=== PATIENT | male | born 1965 | race African-American/Black ===

== ENCOUNTER 2019-06-17 18:14 | Inpatient (IN) | payer MEDICARE, MEDICAID ==
[~2019-06-17] VITALS: Ht 177.8 cm; Wt 185.5 kg
--- NOTE | 2019-06-17 18:17 | NUR ---
ED Nurse Note: Pt brought in by ambulance from home due to left side CP, non radiating and consistent since last night. Pt states he feels more pain when he breathes in. AAO x4, with mild SOB upon exertion. Lungs clear when auscultated. ER MD made aware.
--- NOTE | 2019-06-17 18:22 | Emergency Room Report ---
History of Present Illness General Chief Complaint: Dyspnea/Respdistress Source: Patient Present Illness HPI 53-year-old male history of hypertension, hyperlipidemia, obesity presents with chest pressure left-sided since 9 PM yesterday no aggravating or relieving factors severity is moderate, constant no nausea no vomiting, patient does endorse some shortness of breath no diaphoresis, patient has a family history of cardiac disease in mother age 65 had a possible SD cannot remember, patient presents via EMS patient already received aspirin and nitro Allergies: Coded Allergies: No Known Allergies (Unverified , 06/17/19) Patient History Past Medical History: see triage record Reviewed Nursing Documentation: PMH: Agreed; PSxH: Agreed Review of Systems All Other Systems: negative except mentioned in HPI Physical Exam Vital Signs Date Time Temp Pulse Resp B/P (MAP) Pulse Ox O2 Delivery O2 Flow Rate FiO2 06/17/19 18:07 98.4 104 20 154/84 (107) 98 Room Air Sp02 EP Interpretation: reviewed, normal General Appearance: well appearing, no apparent distress, alert Head: normocephalic, atraumatic Eyes: bilateral eye PERRL, bilateral eye EOMI ENT: uvula midline, moist mucus membranes Neck: supple, thyroid normal, supple/symm/no masses Respiratory: lungs clear, no respiratory distress, no retraction, no accessory muscle use Cardiovascular #1: normal peripheral pulses, regular rate, rhythm, no edema, no gallop, no murmur Gastrointestinal: non tender, soft, no guarding, no rebound Musculoskeletal: normal inspection Neurologic: alert, oriented x3 Psychiatric: mood/affect normal Skin: no rash, warm/dry Medical Decision Making Diagnostic Impression: Primary Impression: Chest pain Qualified Codes: R07.9 - Chest pain, unspecified ER Course Patient with chest pain, concerning for possible ACS. No evidence of pneumothorax, pneumonia. Historically not abrupt in onset, tearing or ripping, pulses symmetric, no evidence of aortic dissection. Aspirin already given, nitro given. Patient is doing well Patient admitted to Dr. Perez Laboratory Tests Test 06/17/19 18:30 White Blood Count 12.7 K/UL (4.8-10.8) H Red Blood Count 4.58 M/UL (4.70-6.10) L Hemoglobin 13.9 G/DL (14.2-18.0) L Hematocrit 42.1 % (42.0-52.0) Mean Corpuscular Volume 92 FL (80-99) Mean Corpuscular Hemoglobin 30.5 PG (27.0-31.0) Mean Corpuscular Hemoglobin Concent 33.1 G/DL (32.0-36.0) Red Cell Distribution Width 10.7 % (11.6-14.8) L Platelet Count 262 K/UL (150-450) Mean Platelet Volume 7.0 FL (6.5-10.1) Neutrophils (%) (Auto) 64.7 % (45.0-75.0) Lymphocytes (%) (Auto) 21.3 % (20.0-45.0) Monocytes (%) (Auto) 8.1 % (1.0-10.0) Eosinophils (%) (Auto) 4.3 % (0.0-3.0) H Basophils (%) (Auto) 1.6 % (0.0-2.0) Prothrombin Time 10.0 SEC (9.30-11.50) Prothrombin Time INR 0.9 (0.9-1.1) PTT 30 SEC (23-33) Sodium Level 140 MMOL/L (136-145) Potassium Level 3.7 MMOL/L (3.5-5.1) Chloride Level 103 MMOL/L (98-107) Carbon Dioxide Level 30 MMOL/L (21-32) Anion Gap 8 mmol/L (5-15) Blood Urea Nitrogen 10 mg/dL (7-18) Creatinine 1.0 MG/DL (0.55-1.30) Estimate Glomerular Filtration Rate > 60 mL/min (>60) Glucose Level 131 MG/DL (74-106) H Calcium Level 9.1 MG/DL (8.5-10.1) Total Bilirubin 0.5 MG/DL (0.2-1.0) Aspartate Amino Transferase (AST) 26 U/L (15-37) Alanine Aminotransferase (ALT) 39 U/L (12-78) Alkaline Phosphatase 87 U/L (46-116) Troponin I 0.000 ng/mL (0.000-0.056) Pro-B-Type Natriuretic Peptide 6 pg/mL (0-125) Total Protein 7.8 G/DL (6.4-8.2) Albumin 3.3 G/DL (3.4-5.0) L Globulin 4.5 g/dL Albumin/Globulin Ratio 0.7 (1.0-2.7) L Lipase 120 U/L (73-393) EKG Diagnostic Results EKG Time: 18:12 EP Interpretation: NSR, rate 99, QTc 436, no acute ST elevations, normal axis Rhythm Strip Diag. Results Rhythm Strip Time: 19:54 EP Interpretation: yes Rate: 88 Rhythm: NSR, no PVC's, no ectopy Chest X-Ray Diagnostic Results Chest X-Ray Diagnostic Results : Chest X-Ray Ordered: Yes # of Views/Limited/Complete: 1 View Indication: Chest Pain EP Interpretation: Yes Interpretation: no consolidation, no effusion, no pneumothorax, no acute cardiopulmonary disease Impression: No acute disease Electronically Signed by: Rubin Hutson MD Last Vital Signs Date Time Temp Pulse Resp B/P (MAP) Pulse Ox O2 Delivery O2 Flow Rate FiO2 06/17/19 18:07 98.4 104 20 154/84 (107) 98 Room Air Disposition: ADMITTED INPATIENT Condition: Stable Rubin Hutson MD Jun 17, 2019 18:22
--- NOTE | 2019-06-17 18:40 | NUR ---
ED Nurse Note: Collected blood specimen then sent.
[2019-06-17 18:42] VITALS: BP 137/68
--- NOTE | 2019-06-17 18:45 | NUR ---
ED Nurse Note: seed laboratory technician at the bed side for CXR.
[2019-06-17 19:07] LABS: INR 0.9 (0.9-1.1)
[2019-06-17 19:08] LABS: BASOPHILS % (AUTO) 1.6 % (0.0-2.0); EOSINOPHILS % (AUTO) 4.3 % (0.0-3.0); HEMATOCRIT 42.1 % (42.0-52.0); HEMOGLOBIN 13.9 G/DL (14.2-18.0); LYMPHOCYTES % (AUTO) 21.3 % (20.0-45.0); MEAN CORPUSCULAR VOLUME 92 FL (80-99); MONOCYTES % (AUTO) 8.1 % (1.0-10.0); NEUTROPHILS % (AUTO) 64.7 % (45.0-75.0); PLATELET COUNT 262 K/UL (150-450); RED BLOOD COUNT 4.58 M/UL (4.70-6.10); RED CELL DISTRIBUTION WIDTH 10.7 % (11.6-14.8); WHITE BLOOD COUNT 12.7 K/UL (4.8-10.8)
[2019-06-17 19:12] LABS: ANION GAP 8 mmol/L (5-15); BLOOD UREA NITROGEN 10 mg/dL (7-18); CALCIUM 9.1 MG/DL (8.5-10.1); CARBON DIOXIDE 30 MMOL/L (21-32); CHLORIDE 103 MMOL/L (98-107); POTASSIUM 3.7 MMOL/L (3.5-5.1); SODIUM 140 MMOL/L (136-145)
--- NOTE | 2019-06-17 19:16 | NUR ---
HAND-OFF: Report given to Terrance ANTONIO.
--- NOTE | 2019-06-17 19:18 | NUR ---
ED Nurse Note: Received report from Otilia ANTONIO. Patient alert and verbally responsive. No SOB. Breathing even and unlabored. Afebrile. VSS.
[2019-06-17 19:20] LABS: ALANINE AMINOTRANSFERASE 39 U/L (12-78); ALBUMIN 3.3 G/DL (3.4-5.0); ALBUMIN/GLOBULIN RATIO 0.7 (1.0-2.7); ALKALINE PHOSPHATASE 87 U/L (46-116); ASPARTATE AMINO TRANSFERASE 26 U/L (15-37); BILIRUBIN,TOTAL 0.5 MG/DL (0.2-1.0)
--- NOTE | 2019-06-17 21:00 | NUR ---
ED Nurse Note: Patient seen quietly in bed. Alert and oriented. No SOB. No c/o pain or any discomfort. will cont to monitor.
[2019-06-17 21:05] VITALS: BP 133/77
[2019-06-17] MEDS ORDERED: Nitroglycerin Subl 0.4mg tab SL PRN (22:00)
[2019-06-17] MEDS ORDERED: Enalaprilat 2.5mg/2ml Inj IV PRN (22:00)
[2019-06-17] MEDS ORDERED: dilTIAZem HCl 25mg/5ml Inj IV PRN (22:00)
[2019-06-17] MEDS ORDERED: Miralax 17gm pkt ORAL PRN (22:00)
[2019-06-17] MEDS ORDERED: Albuterol/Ipratropium 3ml neb HHN PRN (22:00)
[2019-06-17 23:00] VITALS: BP 130/79
--- NOTE | 2019-06-17 23:11 | NUR ---
TRANSFER TO FLOOR: Patient transferred to Telemetry as ordered. Report given to Edward ANTONIO. alert and oriented, verbally responsive. no SOB. Breathing even and unlabored. Able to walk with minimal assistance. IV line on right hand 20g patent and intact. Bladder and bowel continent. Afebrile. VSS. Belongings list done. Belongings was given to patient.
--- NOTE | 2019-06-17 23:30 | NUR ---
HAND-OFF: Patient received from Jeanine RN. Patient i alert and oriented x4. Stable. No shortnes of reath. Patient is able to ambulate with minimal assistance. RH 20 g IV Patent. Continent of bowel and bladder. Vital signs stable. Belongings withpatient at bedside. Orders were input already by Dr Bender.
[2019-06-18] MEDS: Morphine Sulfate 2mg/ml Inj(IV/IM USE ONLY) IVP PRN ×2 (00:17→21:47)
[2019-06-18 07:10] LABS: BASOPHILS % (AUTO) 0.7 % (0.0-2.0); EOSINOPHILS % (AUTO) 5.1 % (0.0-3.0); HEMATOCRIT 39.9 % (42.0-52.0); HEMOGLOBIN 13.3 G/DL (14.2-18.0); MEAN CORPUSCULAR VOLUME 92 FL (80-99); MONOCYTES % (AUTO) 8.3 % (1.0-10.0); PLATELET COUNT 243 K/UL (150-450); RED BLOOD COUNT 4.34 M/UL (4.70-6.10); RED CELL DISTRIBUTION WIDTH 11.7 % (11.6-14.8); WHITE BLOOD COUNT 11.6 K/UL (4.8-10.8)
--- NOTE | 2019-06-18 07:35 | NUR ---
HAND-OFF: Report given to Judy ANTONIO. Patient is stable. Plan of care was endorsed.
--- NOTE | 2019-06-18 07:39 | NUR ---
NURSE NOTES: Patient received from Mateus ANTONIO. Patient stable sleeping in bed. No s/sx of pain or distress. RR even and unlabored on 2L NC for comfort as requested by patient. Side rails up x2, bed low and locked. Will continue to monitor.
[2019-06-18 07:53] LABS: INR 0.9 (0.9-1.1)
[2019-06-18 07:56] LABS: CHOLESTEROL 140 MG/DL (< 200); HDL CHOLESTEROL 38 MG/DL (40-60); TRIGLYCERIDES 75 MG/DL (30-150)
[2019-06-18 08:00] VITALS: BP 121/63
[2019-06-18] MEDS: Aspirin Baby 81mg ORAL SCH (09:01)
[2019-06-18] MEDS: Heparin 5000 units/ml inj SUBQ SCH ×2 (09:08→21:46)
--- NOTE | 2019-06-18 09:40 | NUR ---
NURSE NOTES: Patient cannot recall medications but stated that he fills medications at [facility] pharmacy on [address]. Pharmacy called and requested consent for disclosure of medications to be filled out and faxed. Sheet faxed. Awaiting fax back.
--- NOTE | 2019-06-18 11:31 | Consultation ---
History of Present Illness General Date patient seen: Jun 18, 2019 Chief Complaint: Dyspnea/Respdistress Present Illness HPI 53-year-old male history of hypertension, hyperlipidemia, gout, morbid obesity presented to ER with chest pressure left-sided since. the pain is pleuritic and worsens with deep inspiration. His BP was 150/80 on presentation. His pain resolved with low dose of Morphine. Allergies: Coded Allergies: CIGARETTE SMOKE (Verified Allergy, Intermediate, Shortness of Breath, 07/27) Dust (Verified Allergy, Intermediate, Shortness of Breath, 06/18/19) Patient History Healthcare decision maker Resuscitation status Full Code Advanced Directive on File Past Medical/Surgical History Past Medical/Surgical History: (1) Morbid obesity (2) Hypertension (3) CAD (coronary artery disease) Review of Systems All Other Systems: negative except mentioned in HPI Physical Exam General Appearance: WD/WN, morbidly obese Lines, tubes and drains: peripheral HEENT: normocephalic, atraumatic Neck: non-tender, normal alignment, supple Respiratory/Chest: chest wall non-tender, lungs clear Cardiovascular/Chest: normal peripheral pulses, normal rate Abdomen: normal bowel sounds, non tender Genitourinary/Rectal: normal genital exam 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 Last 24 Hour Vital Signs Date Time Temp Pulse Resp B/P (MAP) Pulse Ox O2 Delivery O2 Flow Rate FiO2 06/18/19 09:29 Nasal Cannula 2.0 06/18/19 08:00 97.9 73 21 121/63 (82) 95 06/18/19 08:00 72 06/18/19 07:24 96 Nasal Cannula 2.0 28 06/18/19 07:24 86 20 96 Nasal Cannula 2.0 28 06/18/19 04:00 72 06/18/19 00:47 97.7 06/18/19 00:00 86 06/17/19 23:35 Room Air 06/17/19 23:11 98.2 77 19 130/79 100 Room Air 06/17/19 23:00 98.2 77 19 130/79 100 Room Air 06/17/19 21:05 98.7 88 19 133/77 99 Room Air 06/17/19 18:42 86 17 Room Air 06/17/19 18:42 98.4 83 15 137/68 99 Room Air 06/17/19 18:07 98.4 104 20 154/84 (107) 98 Room Air Laboratory Tests Test 06/17/19 18:30 06/18/19 06:21 White Blood Count 12.7 K/UL (4.8-10.8) H 11.6 K/UL (4.8-10.8) H Red Blood Count 4.58 M/UL (4.70-6.10) L 4.34 M/UL (4.70-6.10) L Hemoglobin 13.9 G/DL (14.2-18.0) L 13.3 G/DL (14.2-18.0) L Hematocrit 42.1 % (42.0-52.0) 39.9 % (42.0-52.0) L Mean Corpuscular Volume 92 FL (80-99) 92 FL (80-99) Mean Corpuscular Hemoglobin 30.5 PG (27.0-31.0) 30.7 PG (27.0-31.0) Mean Corpuscular Hemoglobin Concent 33.1 G/DL (32.0-36.0) 33.4 G/DL (32.0-36.0) Red Cell Distribution Width 10.7 % (11.6-14.8) L 11.7 % (11.6-14.8) Platelet Count 262 K/UL (150-450) 243 K/UL (150-450) Mean Platelet Volume 7.0 FL (6.5-10.1) 7.2 FL (6.5-10.1) Neutrophils (%) (Auto) 64.7 % (45.0-75.0) 58.0 % (45.0-75.0) Lymphocytes (%) (Auto) 21.3 % (20.0-45.0) 28.0 % (20.0-45.0) Monocytes (%) (Auto) 8.1 % (1.0-10.0) 8.3 % (1.0-10.0) Eosinophils (%) (Auto) 4.3 % (0.0-3.0) H 5.1 % (0.0-3.0) H Basophils (%) (Auto) 1.6 % (0.0-2.0) 0.7 % (0.0-2.0) Prothrombin Time 10.0 SEC (9.30-11.50) 10.0 SEC (9.30-11.50) Prothromb Time International Ratio 0.9 (0.9-1.1) 0.9 (0.9-1.1) Activated Partial Thromboplast Time 30 SEC (23-33) 30 SEC (23-33) Sodium Level 140 MMOL/L (136-145) Potassium Level 3.7 MMOL/L (3.5-5.1) Chloride Level 103 MMOL/L (98-107) Carbon Dioxide Level 30 MMOL/L (21-32) Anion Gap 8 mmol/L (5-15) Blood Urea Nitrogen 10 mg/dL (7-18) Creatinine 1.0 MG/DL (0.55-1.30) Estimat Glomerular Filtration Rate > 60 mL/min (>60) Glucose Level 131 MG/DL (74-106) H Calcium Level 9.1 MG/DL (8.5-10.1) Total Bilirubin 0.5 MG/DL (0.2-1.0) Aspartate Amino Transf (AST/SGOT) 26 U/L (15-37) Alanine Aminotransferase (ALT/SGPT) 39 U/L (12-78) Alkaline Phosphatase 87 U/L (46-116) Troponin I 0.000 ng/mL (0.000-0.056) Pro-B-Type Natriuretic Peptide 6 pg/mL (0-125) Total Protein 7.8 G/DL (6.4-8.2) Albumin 3.3 G/DL (3.4-5.0) L Globulin 4.5 g/dL Albumin/Globulin Ratio 0.7 (1.0-2.7) L Lipase 120 U/L (73-393) C-Reactive Protein, Quantitative 2.1 mg/dL (0.00-0.90) H Triglycerides Level 75 MG/DL (30-150) Cholesterol Level 140 MG/DL (< 200) LDL Cholesterol 101 mg/dL (<100) H HDL Cholesterol 38 MG/DL (40-60) L Cholesterol/HDL Ratio 3.7 (3.3-4.4) Thyroid Stimulating Hormone (TSH) 2.943 uiU/mL (0.358-3.740) Height (Feet): 5 Height (Inches): 10.00 Weight (Pounds): 409 Medications Current Medications Medications (Trade) Dose Ordered Sig/Teresa Route PRN Reason Start Time Stop Time Status Last Admin Dose Admin Acetaminophen (Tylenol) 650 mg Q4H PRN ORAL FEVER 06/17/19 22:00 07/17/19 21:59 Albuterol/ Ipratropium (Albuterol/ Ipratropium) 3 ml EVERY 4 HOURS PRN HHN Shortness of Breath 06/17/19 22:00 06/22/19 21:59 Aspirin (ASA) 162 mg DAILY ORAL 06/18/19 09:00 07/18/19 08:59 06/18/19 09:01 Diltiazem HCl (Cardizem) 10 mg EVERY HOUR PRN IV heart rate more than 120, 06/17/19 22:00 07/17/19 21:59 Enalaprilat (Vasotec) 2.5 mg EVERY 6 HOURS PRN IV sbp more than 160 06/17/19 22:00 07/17/19 21:59 Heparin Sodium (Porcine) (Heparin 5000 units/ml) 5,000 units EVERY 12 HOURS SUBQ 06/18/19 09:00 07/18/19 08:59 06/18/19 09:08 Morphine Sulfate (Morphine Sulfate) 2 mg EVERY 4 HOURS PRN IVP severe Pain (Pain Scale 7-10) 06/17/19 22:00 06/24/19 21:59 06/18/19 00:17 Nitroglycerin (Ntg) 0.4 mg NEEDED PRN SL Prn Chest Pain 06/17/19 22:00 07/17/19 21:59 Ondansetron HCl (Zofran) 4 mg Q6H PRN IVP Nausea & Vomiting 06/17/19 22:00 07/17/19 21:59 Polyethylene Glycol (Miralax) 17 gm DAILYPRN PRN ORAL Constipation 06/17/19 22:00 07/17/19 21:59 Temazepam (Restoril) 15 mg HSPRN PRN ORAL Insomnia 06/17/19 22:00 06/24/19 21:59 Assessment/Plan Problem List: (1) Pleuritic chest pain ICD Codes: R07.81 - Pleurodynia SNOMED: 0107957 (2) Abnormal EKG ICD Codes: R94.31 - Abnormal electrocardiogram [ECG] [EKG] SNOMED: 318874723 (3) Morbid obesity ICD Codes: E66.01 - Morbid (severe) obesity due to excess calories SNOMED: 733318337 (4) Hypertension ICD Codes: I10 - Essential (primary) hypertension SNOMED: 14597645 (5) CAD (coronary artery disease) ICD Codes: I25.10 - Atherosclerotic heart disease of [place] coronary artery without angina pectoris SNOMED: 55910843 Assessment/Plan: echocardiogram serial ekg there is some risk for PE, Echo showing normal pulmonary pressure. I will get venous US of legs. cardiology evaluation pt will need nutrition evaluation as well. symptomatic treatment. Dejan Bender MD Jun 18, 2019 11:31
[2019-06-18 11:53] VITALS: BP 133/77
--- NOTE | 2019-06-18 12:17 | Diagnostic Imaging Report ---
Indication: Dyspnea Comparison: None A single view chest radiograph was obtained. Findings: Cardiomediastinal appearance is within normal limits for age. The lungs are clear. Pulmonary vascularity is appropriate. The diaphragmatic contour is smooth and costophrenic angles are sharp. No pleural effusions are identified. The bones are unremarkable. Impression: No acute findings
[2019-06-18] MEDS ORDERED: Norco ORAL (13:22)
[2019-06-18] MEDS ORDERED: FLOMAX0.4 MG ORAL (13:22)
[2019-06-18] MEDS ORDERED: TIZANIDINE HCL4 M2 ORAL (13:22)
[2019-06-18] MEDS ORDERED: ASPIRIN-LOW81 MG ORAL (13:22)
[2019-06-18] MEDS ORDERED: [UNRECOGNIZED DRUG - OTHER] NASAL (13:22)
[2019-06-18] MEDS ORDERED: LISINOPRIL-HCT1 EACH ORAL (13:22)
[2019-06-18] MEDS ORDERED: GABAPENTIN600 MG ORAL (13:22)
[2019-06-18] MEDS ORDERED: CELECOXIB ORAL (13:22)
--- NOTE | 2019-06-18 13:29 | NUR ---
CASE MANAGEMENT: INITIAL REVIEW 53 YR OLD FROM HOME CC: DYSPNEA/ RESP DISTRESS SI: CHEST PAIN 98.4 104 20 154/84 98%RA WBC 12.7; RBC 4.58; H/H 13.9/42.1; BG 131; IS: CXR ECG LABS 2D ECHO : 2E TELE UNIT DCP: RETURN HOME PLAN: US LEGS CARDIO EVAL
--- NOTE | 2019-06-18 14:21 | NUR ---
NURSE NOTES: Patient aware that urine sample needed. Specimen cup given.
[2019-06-18 16:00] VITALS: BP 127/69
--- NOTE | 2019-06-18 16:09 | History & Physical ---
History and Physical History & Physicial Michael Perez MD Jun 18, 2019 16:09
--- NOTE | 2019-06-18 18:30 | History and Physical Report ---
DATE OF ADMISSION: 06/17/2019 CHIEF COMPLAINT: Left-sided chest pain and shortness of breath. HISTORY OF PRESENT ILLNESS: This is a 53-year-old morbidly obese gentleman with past medical history significant for hypertension, dyslipidemia, and gout, who has presented to the hospital complaining about left-sided chest pain that started Friday, the day before admission around 9 p.m., progressive worsening chest pain, was mostly located in the left side of chest wall, radiates to the left chest and down to the left side of body, left upper extremity associated with shortness of breath. Pain became progressively worsening to the point that he was about to pass out and he decided to come to the hospital. Shortly after initial evaluation in the Emergency, the patient received one dose of morphine. His shortness of breath and chest pain improved and subsequently the patient was admitted to the hospital with chest pain, possible acute coronary syndrome as well as acute CHF exacerbation with fluid overload. PAST MEDICAL HISTORY/PAST SURGICAL HISTORY: As above, history of hypertension, dyslipidemia, morbid obesity, and history of gout. Past surgical history is significant for the right elbow surgery due to shattered elbow as well as the patient has a history of angina. MEDICATIONS AT HOME: Please refer to medication reconciliation. ALLERGIES: No known drug allergies. Dust allergy. SOCIAL HISTORY: The patient denies cigarette smoking. FAMILY HISTORY: Noncontributory. REVIEW OF SYSTEMS: Mostly as above. Complained about chest pain and shortness of breath. Denies any hemoptysis or hematochezia. Denies any suicidal or homicidal ideation. Denies any loss of consciousness. Denies any fall or head trauma. Denies any seizure activity. Complained about the lower extremity edema. Denies any fall or head trauma. PHYSICAL EXAMINATION: VITAL SIGNS: On admission from the ER, temperature 98.4, pulse of 104, respirations 20, and blood pressure 154/84. GENERAL: The patient is awake, responsive, in no acute distress. HEAD AND NECK: Pupils are equal and reactive to light. Extraocular movements intact. Neck was supple. No JVD. LUNGS: Good air entry with no wheeze or rales. HEART: S1, S2. Distant heart sounds. No murmur or gallops. ABDOMEN: Soft, nondistended, and nontender. Morbidly obese. EXTREMITIES: No cyanosis or clubbing. +2 edema bilateral lower extremities NEUROLOGIC: Cranial nerves II through XII grossly normal. Moves all four extremities. Gait is not assessed due to the patient's status. RECTAL/GENITOURINARY: Refused and deferred. PSYCHIATRIC: Mood and affect is intact. LABORATORY DATA: On admission from the ER is significant for WBC of 12, hemoglobin 13, hematocrit 42, and platelets 262,000. Sodium 140, potassium 3.7, chloride 103, bicarbonate 30, BUN 10, and creatinine 1.0. Glucose is 131. AST of 26, ALT of 39. Troponin 0.00. The patient's cholesterol is 140. Lipase is 120. TSH is 2.4. PT of 10, INR is 0.9, PTT of 30. Urine drug screen is still pending. Chest x-ray, no acute finding. Duplex of lower extremities negative. ASSESSMENT: 1. Chest pain, possible acute coronary syndrome. 2. Fluid overload with acute CHF exacerbation. 3. Morbid obesity. 4. Hypertension. 5. Dyslipidemia. 6. Pleuritic chest pain with abnormal EKG. PLAN: We will follow up with serial cardiac enzymes. Lasix IV. Monitor laboratory. Code status is Full Code. DVT prophylaxis with heparin subcutaneous. Follow up with 2-D echo. Discussed case with Dr. Bender, Pulmonary Critical Care and Dr. El from Cardiology. Michael Perez M.D. DR: BERNADINE JOB#: [id number] CC:
--- NOTE | 2019-06-18 19:20 | NUR ---
HAND-OFF: Report given to Mateus ANTONIO. Patient stable.
--- NOTE | 2019-06-18 19:30 | NUR ---
Report given to me by Judy ANTNOIO. Patient is resting comfortably in bed. Vital signs stable. Bed in lowest position, call light within reach. Patient c/o constipation 2 days.. Will page MD for prn medication for constipation. Continue to follow with plan of care endorsed to me.
[2019-06-18 20:00] VITALS: BP 143/86
[2019-06-19] VITALS (7 sets, daily range): BP systolic 129–144; BP diastolic 68–92
--- NOTE | 2019-06-19 07:14 | NUR ---
Report given to Christina ANTONIO. Patient is stable. Endorsed plan of care. Addendum: 06/19/19 at 0714 by Mateus ISBELL Report given to Travis ANTONIO, not Christina ANTONIO
--- NOTE | 2019-06-19 07:15 | NUR ---
NURSE NOTES: Received report from MARISELA Michelle. Patient is alert and orientated x 4. Patient is on monitoring specialist. Ppatient is on room air breathing even and unlabored. Patient is in semi-quintanilla position and lying in bed. Bed is in lowest position, call light within reach, side rails x2 are up. Will continue plan of care.
[2019-06-19 07:30] LABS: BASOPHILS % (AUTO) 0.8 % (0.0-2.0); EOSINOPHILS % (AUTO) 6.3 % (0.0-3.0); HEMATOCRIT 40.6 % (42.0-52.0); HEMOGLOBIN 13.4 G/DL (14.2-18.0); MEAN CORPUSCULAR VOLUME 92 FL (80-99); PLATELET COUNT 257 K/UL (150-450); RED BLOOD COUNT 4.43 M/UL (4.70-6.10); RED CELL DISTRIBUTION WIDTH 11.5 % (11.6-14.8); WHITE BLOOD COUNT 10.2 K/UL (4.8-10.8)
[2019-06-19 08:03] LABS: ALANINE AMINOTRANSFERASE 35 U/L (12-78); ALBUMIN 3.2 G/DL (3.4-5.0); ALBUMIN/GLOBULIN RATIO 0.7 (1.0-2.7); ALKALINE PHOSPHATASE 72 U/L (46-116); ANION GAP 6 mmol/L (5-15); ASPARTATE AMINO TRANSFERASE 24 U/L (15-37); BILIRUBIN,TOTAL 0.8 MG/DL (0.2-1.0); BLOOD UREA NITROGEN 8 mg/dL (7-18); CALCIUM 9.2 MG/DL (8.5-10.1); CARBON DIOXIDE 30 MMOL/L (21-32); CHLORIDE 103 MMOL/L (98-107); CREATININE 0.9 MG/DL (0.55-1.30); PHOSPHORUS 3.6 MG/DL (2.5-4.9); POTASSIUM 3.9 MMOL/L (3.5-5.1); SODIUM 139 MMOL/L (136-145)
--- NOTE | 2019-06-19 08:41 | Pulmonology Progress Note ---
Assessment/Plan Assessment/Plan ASSESSMENT Chest pain rule out ACS ? pleuritic chest pain Hypertension Hyperlipidemia Morbid obesity SYLVIA Gout PLAN OF CARE Telemetry Serial troponin negative , tele no acute ischemic changes, thus no acute NV, clinically improving Echo with EF 65% aspirin fup with cardio recs pain management O2, HHN prn pulse ox now stable on RA Venous duplex BLE - negative DVT prophylaxis CXR negative BP management with STARLA Lipid panel stable at home on CPAP, BiPAP at HS and prn case discussed and evaluated by supervising physician Subjective Allergies: Coded Allergies: CIGARETTE SMOKE (Verified Allergy, Intermediate, Shortness of Breath, 07/27) Dust (Verified Allergy, Intermediate, Shortness of Breath, 06/18/19) Subjective leukocytosis resolved,afebrile pulse ox stable on RA serial troponin negative denies chest pain, less leg edema, less SOB Objective Last 24 Hour Vital Signs Date Time Temp Pulse Resp B/P (MAP) Pulse Ox O2 Delivery O2 Flow Rate FiO2 06/19/19 08:00 98.0 75 22 129/73 (91) 95 06/19/19 04:00 97.7 85 18 132/74 (93) 97 06/19/19 04:00 69 06/19/19 00:00 98.1 77 18 144/92 (109) 97 06/19/19 00:00 66 06/18/19 22:17 97.5 06/18/19 21:00 Nasal Cannula 2.0 06/18/19 20:00 97.5 77 18 143/86 (105) 97 06/18/19 19:38 97 Nasal Cannula 2.0 28 06/18/19 19:38 80 20 97 Nasal Cannula 2.0 28 06/18/19 16:00 97.5 72 22 127/69 (88) 97 06/18/19 16:00 70 06/18/19 12:00 73 06/18/19 11:53 98.0 70 22 133/77 (95) 96 06/18/19 09:29 Nasal Cannula 2.0 Intake and Output 06/18/19 06/19/19 19:00 07:00 Output Total 1000 ml Balance -1000 ml Output Urine Total 1000 ml # Voids 4 General Appearance: no acute distress, other - A/A/O x 4 morbidly obese male HEENT: normocephalic, atraumatic, anicteric, mucous membranes moist, PERRL Respiratory/Chest: chest wall non-tender, no respiratory distress, no accessory muscle use, crackles/rales - few crackles at bases Cardiovascular: normal rate, regular rhythm - SR on tele Abdomen: soft, non tender - obese Neurologic/Psychiatric: no motor/sensory deficits, alert, oriented x 3, responsive Musculoskeletal: normal muscle bulk Laboratory Tests 06/18/19 13:50: Urine Opiates Screen Negative, Urine Barbiturates Screen Negative, Phencyclidine (PCP) Screen Negative, Urine Amphetamines Screen Negative, Urine Benzodiazepines Screen Negative, Urine Cocaine Screen Negative, Urine Marijuana (THC) Screen Negative 06/18/19 16:15: Troponin I 0.000 06/19/19 05:31: Troponin I 0.000, White Blood Count 10.2, Red Blood Count 4.43L, Hemoglobin 13.4L, Hematocrit 40.6L, Mean Corpuscular Volume 92, Mean Corpuscular Hemoglobin 30.2, Mean Corpuscular Hemoglobin Concent 33.0, Red Cell Distribution Width 11.5L, Platelet Count 257, Mean Platelet Volume 7.4, Neutrophils (%) (Auto) 55.0, Lymphocytes (%) (Auto) 30.0, Monocytes (%) (Auto) 8.0, Eosinophils (%) (Auto) 6.3H, Basophils (%) (Auto) 0.8, Erythrocyte Sedimentation Rate [Pending], Sodium Level 139, Potassium Level 3.9, Chloride Level 103, Carbon Dioxide Level 30, Anion Gap 6, Blood Urea Nitrogen 8, Creatinine 0.9, Estimat Glomerular Filtration Rate > 60, Glucose Level 116H, Calcium Level 9.2, Phosphorus Level 3.6, Magnesium Level 2.0, Total Bilirubin 0.8, Aspartate Amino Transf (AST/SGOT) 24, Alanine Aminotransferase (ALT/SGPT) 35, Alkaline Phosphatase 72, Total Protein 7.6, Albumin 3.2L, Globulin 4.4, Albumin/Globulin Ratio 0.7L Current Medications Medications (Trade) Dose Ordered Sig/Teresa Route PRN Reason Start Time Stop Time Status Last Admin Dose Admin Acetaminophen (Tylenol) 650 mg Q4H PRN ORAL FEVER 06/17/19 22:00 07/17/19 21:59 Albuterol/ Ipratropium (Albuterol/ Ipratropium) 3 ml EVERY 4 HOURS PRN HHN Shortness of Breath 06/17/19 22:00 06/22/19 21:59 Aspirin (ASA) 162 mg DAILY ORAL 06/18/19 09:00 07/18/19 08:59 06/18/19 09:01 Diltiazem HCl (Cardizem) 10 mg EVERY HOUR PRN IV heart rate more than 120, 06/17/19 22:00 07/17/19 21:59 Enalaprilat (Vasotec) 2.5 mg EVERY 6 HOURS PRN IV sbp more than 160 06/17/19 22:00 07/17/19 21:59 Heparin Sodium (Porcine) (Heparin 5000 units/ml) 5,000 units EVERY 12 HOURS SUBQ 06/18/19 09:00 07/18/19 08:59 06/18/19 21:46 Lisinopril (Zestril) 10 mg DAILY ORAL 06/19/19 09:00 07/19/19 08:59 Morphine Sulfate (Morphine Sulfate) 2 mg EVERY 4 HOURS PRN IVP severe Pain (Pain Scale 7-10) 06/17/19 22:00 06/24/19 21:59 06/18/19 21:47 Nitroglycerin (Ntg) 0.4 mg NEEDED PRN SL Prn Chest Pain 06/17/19 22:00 07/17/19 21:59 Ondansetron HCl (Zofran) 4 mg Q6H PRN IVP Nausea & Vomiting 06/17/19 22:00 07/17/19 21:59 Polyethylene Glycol (Miralax) 17 gm DAILYPRN PRN ORAL Constipation 06/17/19 22:00 07/17/19 21:59 06/18/19 21:45 Tamsulosin HCl (Flomax) 0.4 mg DAILY ORAL 06/19/19 09:00 07/19/19 08:59 Temazepam (Restoril) 15 mg HSPRN PRN ORAL Insomnia 06/17/19 22:00 06/24/19 21:59 Janette Joe NP Jun 19, 2019 08:41
[2019-06-19] MEDS: Aspirin Baby 81mg ORAL SCH (08:52)
[2019-06-19] MEDS: Lisinopril 10mg tab ORAL SCH (08:56)
[2019-06-19] MEDS: Tamsulosin 0.4mg cap ORAL SCH (09:00)
[2019-06-19] MEDS: Heparin 5000 units/ml inj SUBQ SCH ×2 (09:02→22:39)
[2019-06-19] MEDS ORDERED: [UNRECOGNIZED DRUG - OTHER] PO (09:42)
--- NOTE | 2019-06-19 16:33 | Internal Med Progress Note ---
Subjective Date of Service: Jun 19, 2019 Physician Name Dion Nelson Attending Physician Michael Perez MD Current Medications Medications (Trade) Dose Ordered Sig/Teresa Route PRN Reason Start Time Stop Time Status Last Admin Dose Admin Acetaminophen (Tylenol) 650 mg Q4H PRN ORAL FEVER 06/17/19 22:00 07/17/19 21:59 Albuterol/ Ipratropium (Albuterol/ Ipratropium) 3 ml EVERY 4 HOURS PRN HHN Shortness of Breath 06/17/19 22:00 06/22/19 21:59 Aspirin (ASA) 162 mg DAILY ORAL 06/18/19 09:00 07/18/19 08:59 06/19/19 08:52 Diltiazem HCl (Cardizem) 10 mg EVERY HOUR PRN IV heart rate more than 120, 06/17/19 22:00 07/17/19 21:59 Enalaprilat (Vasotec) 2.5 mg EVERY 6 HOURS PRN IV sbp more than 160 06/17/19 22:00 07/17/19 21:59 Gabapentin (Neurontin) 600 mg TWICE A DAY ORAL 06/19/19 10:45 07/19/19 10:44 06/19/19 10:50 Heparin Sodium (Porcine) (Heparin 5000 units/ml) 5,000 units EVERY 12 HOURS SUBQ 06/18/19 09:00 07/18/19 08:59 06/19/19 09:02 Lisinopril (Zestril) 10 mg DAILY ORAL 06/19/19 09:00 07/19/19 08:59 06/19/19 08:56 Morphine Sulfate (Morphine Sulfate) 2 mg EVERY 4 HOURS PRN IVP severe Pain (Pain Scale 7-10) 06/17/19 22:00 06/24/19 21:59 06/18/19 21:47 Nitroglycerin (Ntg) 0.4 mg NEEDED PRN SL Prn Chest Pain 06/17/19 22:00 07/17/19 21:59 Ondansetron HCl (Zofran) 4 mg Q6H PRN IVP Nausea & Vomiting 06/17/19 22:00 07/17/19 21:59 Polyethylene Glycol (Miralax) 17 gm DAILYPRN PRN ORAL Constipation 06/17/19 22:00 07/17/19 21:59 06/18/19 21:45 Tamsulosin HCl (Flomax) 0.4 mg DAILY ORAL 06/19/19 09:00 07/19/19 08:59 Temazepam (Restoril) 15 mg HSPRN PRN ORAL Insomnia 06/17/19 22:00 06/24/19 21:59 Allergies: Coded Allergies: CIGARETTE SMOKE (Verified Allergy, Intermediate, Shortness of Breath, 07/27) Dust (Verified Allergy, Intermediate, Shortness of Breath, 06/18/19) ROS Limited/Unobtainable: No Constitutional: Reports: no symptoms HEENT: Reports: no symptoms Cardiovascular: Reports: chest pain Respiratory: Reports: no symptoms Gastrointestinal/Abdominal: Reports: no symptoms Genitourinary: Reports: no symptoms Neurologic/Psychiatric: Reports: no symptoms Subjective 53 YO M admitted with chest pain and shortness of breath. Cover for Int Ruben-Dr Perez Objective Last Vital Signs Date Time Temp Pulse Resp B/P (MAP) Pulse Ox O2 Delivery O2 Flow Rate FiO2 06/19/19 16:00 98.2 70 22 140/68 (92) 96 06/19/19 09:00 Room Air 06/19/19 07:50 2.0 28 Laboratory Tests Test 06/19/19 05:31 White Blood Count 10.2 K/UL (4.8-10.8) Red Blood Count 4.43 M/UL (4.70-6.10) L Hemoglobin 13.4 G/DL (14.2-18.0) L Hematocrit 40.6 % (42.0-52.0) L Mean Corpuscular Volume 92 FL (80-99) Mean Corpuscular Hemoglobin 30.2 PG (27.0-31.0) Mean Corpuscular Hemoglobin Concent 33.0 G/DL (32.0-36.0) Red Cell Distribution Width 11.5 % (11.6-14.8) L Platelet Count 257 K/UL (150-450) Mean Platelet Volume 7.4 FL (6.5-10.1) Neutrophils (%) (Auto) 55.0 % (45.0-75.0) Lymphocytes (%) (Auto) 30.0 % (20.0-45.0) Monocytes (%) (Auto) 8.0 % (1.0-10.0) Eosinophils (%) (Auto) 6.3 % (0.0-3.0) H Basophils (%) (Auto) 0.8 % (0.0-2.0) Erythrocyte Sedimentation Rate 47 MM/HR (0-20) H Sodium Level 139 MMOL/L (136-145) Potassium Level 3.9 MMOL/L (3.5-5.1) Chloride Level 103 MMOL/L (98-107) Carbon Dioxide Level 30 MMOL/L (21-32) Anion Gap 6 mmol/L (5-15) Blood Urea Nitrogen 8 mg/dL (7-18) Creatinine 0.9 MG/DL (0.55-1.30) Estimat Glomerular Filtration Rate > 60 mL/min (>60) Glucose Level 116 MG/DL (74-106) H Calcium Level 9.2 MG/DL (8.5-10.1) Phosphorus Level 3.6 MG/DL (2.5-4.9) Magnesium Level 2.0 MG/DL (1.8-2.4) Total Bilirubin 0.8 MG/DL (0.2-1.0) Aspartate Amino Transf (AST/SGOT) 24 U/L (15-37) Alanine Aminotransferase (ALT/SGPT) 35 U/L (12-78) Alkaline Phosphatase 72 U/L (46-116) Troponin I 0.000 ng/mL (0.000-0.056) Total Protein 7.6 G/DL (6.4-8.2) Albumin 3.2 G/DL (3.4-5.0) L Globulin 4.4 g/dL Albumin/Globulin Ratio 0.7 (1.0-2.7) L Intake and Output 06/18/19 06/19/19 18:59 06:59 Output Total 1000 ml Balance -1000 ml Output Urine Total 1000 ml # Voids 4 Objective PHYSICAL EXAMINATION: GENERAL: The patient is awake, responsive, in no acute distress. HEAD AND NECK: Pupils are equal and reactive to light. Extraocular movements intact. Neck was supple. No JVD. LUNGS: Good air entry with no wheeze or rales. HEART: S1, S2. Distant heart sounds. No murmur or gallops. ABDOMEN: Soft, nondistended, and nontender. Morbidly obese. EXTREMITIES: No cyanosis or clubbing. +2 edema bilateral lower extremities NEUROLOGIC: Cranial nerves II through XII grossly normal. Moves all four extremities. Gait is not assessed due to the patient's status. RECTAL/GENITOURINARY: Refused and deferred. PSYCHIATRIC: Mood and affect is intact. Assessment/Plan Assessment/Plan ASSESSMENT: 1. Chest pain, possible acute coronary syndrome. 2. Fluid overload with acute CHF exacerbation. 3. Morbid obesity. 4. Hypertension. 5. Dyslipidemia. 6. Pleuritic chest pain with abnormal EKG. PLAN: We will follow up with serial cardiac enzymes. Lasix IV. Monitor laboratory. Code status is Full Code. DVT prophylaxis with heparin subcutaneous. Follow up with 2-D echo. Discussed case with Dr. Bender, Pulmonary Critical Care and Dr. El from Cardiology. Dion Nelson MD Jun 19, 2019 16:32
--- NOTE | 2019-06-19 17:34 | Cardiology Report ---
APPROVED REPORT EKG Measurement Heart [id number] NE [id number] Normal sinus rhythm Nonspecific T wave abnormality Abnormal ECG
--- NOTE | 2019-06-19 19:47 | NUR ---
HAND-OFF: Report given to MARISELA Tom.
--- NOTE | 2019-06-19 19:50 | NUR ---
NURSE NOTES: Received report from MARISELA Robles. Patient is alert and orientated x 4. Patient is on manager monitoring. patient is on room air breathing even and unlabored, decides to put on nasal cannula at times although not required-Patient is in semi-quintanilla position and lying in bed. Bed is in lowest position, call light within reach, side rails x2 are up. Will continue plan of care.
--- NOTE | 2019-06-19 21:07 | Cardiology Progress Note ---
Subjective Subjective [id number] Objective Last 24 Hour Vital Signs Date Time Temp Pulse Resp B/P (MAP) Pulse Ox O2 Delivery O2 Flow Rate FiO2 06/19/19 19:56 72 18 95 Nasal Cannula 2.0 28 06/19/19 19:56 95 Nasal Cannula 2.0 28 06/19/19 16:00 98.2 70 22 140/68 (92) 96 06/19/19 15:48 98 06/19/19 12:00 98.0 66 21 133/72 (92) 95 06/19/19 11:49 65 06/19/19 09:00 Room Air 06/19/19 08:56 129/73 06/19/19 08:00 98.0 75 22 129/73 (91) 95 06/19/19 07:54 74 06/19/19 07:50 95 Nasal Cannula 2.0 28 06/19/19 07:50 75 18 95 Nasal Cannula 2.0 28 06/19/19 04:00 97.7 85 18 132/74 (93) 97 06/19/19 04:00 69 06/19/19 00:00 98.1 77 18 144/92 (109) 97 06/19/19 00:00 66 06/18/19 22:17 97.5 Intake and Output 06/18/19 06/19/19 19:00 07:00 Output Total 1000 ml Balance -1000 ml Output Urine Total 1000 ml # Voids 4 Laboratory Tests Test 06/19/19 05:31 White Blood Count 10.2 K/UL (4.8-10.8) Red Blood Count 4.43 M/UL (4.70-6.10) L Hemoglobin 13.4 G/DL (14.2-18.0) L Hematocrit 40.6 % (42.0-52.0) L Mean Corpuscular Volume 92 FL (80-99) Mean Corpuscular Hemoglobin 30.2 PG (27.0-31.0) Mean Corpuscular Hemoglobin Concent 33.0 G/DL (32.0-36.0) Red Cell Distribution Width 11.5 % (11.6-14.8) L Platelet Count 257 K/UL (150-450) Mean Platelet Volume 7.4 FL (6.5-10.1) Neutrophils (%) (Auto) 55.0 % (45.0-75.0) Lymphocytes (%) (Auto) 30.0 % (20.0-45.0) Monocytes (%) (Auto) 8.0 % (1.0-10.0) Eosinophils (%) (Auto) 6.3 % (0.0-3.0) H Basophils (%) (Auto) 0.8 % (0.0-2.0) Erythrocyte Sedimentation Rate 47 MM/HR (0-20) H Sodium Level 139 MMOL/L (136-145) Potassium Level 3.9 MMOL/L (3.5-5.1) Chloride Level 103 MMOL/L (98-107) Carbon Dioxide Level 30 MMOL/L (21-32) Anion Gap 6 mmol/L (5-15) Blood Urea Nitrogen 8 mg/dL (7-18) Creatinine 0.9 MG/DL (0.55-1.30) Estimat Glomerular Filtration Rate > 60 mL/min (>60) Glucose Level 116 MG/DL (74-106) H Calcium Level 9.2 MG/DL (8.5-10.1) Phosphorus Level 3.6 MG/DL (2.5-4.9) Magnesium Level 2.0 MG/DL (1.8-2.4) Total Bilirubin 0.8 MG/DL (0.2-1.0) Aspartate Amino Transf (AST/SGOT) 24 U/L (15-37) Alanine Aminotransferase (ALT/SGPT) 35 U/L (12-78) Alkaline Phosphatase 72 U/L (46-116) Troponin I 0.000 ng/mL (0.000-0.056) Total Protein 7.6 G/DL (6.4-8.2) Albumin 3.2 G/DL (3.4-5.0) L Globulin 4.4 g/dL Albumin/Globulin Ratio 0.7 (1.0-2.7) L Kaycee King MD Jun 19, 2019 21:07
[2019-06-19] MEDS ORDERED: Lexiscan 0.4mg/5ml syringe IV ONE (22:30)
[2019-06-19] MEDS: Morphine Sulfate 2mg/ml Inj(IV/IM USE ONLY) IVP PRN (22:47)
--- NOTE | 2019-06-20 02:30 | Consultation ---
DATE OF CONSULTATION: 06/19/2019 CARDIOLOGY CONSULTATION CONSULTING PHYSICIAN: Kaycee King M.D. PATIENT ID: This is a 53-year-old male. REASON FOR EVALUATION: Chest pain. HISTORY OF PRESENT ILLNESS: Taken from the patient, who reports that he developed left-sided chest pain two days ago at night and that pain was left-sided, dull, and getting worse with deep inspiration. There was no cough. No palpitations. No syncope. No orthopnea. No previous similar chest pain. The patient waited till , but then he decided to come to emergency department. The EKG was done and the patient was placed on telemetry. At present time, he is free of pain. PAST MEDICAL HISTORY: Significant for hypertension and morbid obesity. He also has enlarged prostate, benign according to the patient. ALLERGIES: Not reported. PAST SURGICAL HISTORY: Negative. MEDICATIONS: All reviewed. REVIEW OF SYSTEMS: Essentially is negative besides his chest pain without cough, hemoptysis, or wheezing, or previous cardiac history. PHYSICAL EXAMINATION: GENERAL: This is morbidly obese gentleman, pleasant, lying in bed. VITAL SIGNS: Blood pressure 140/70, heart rate 70, oxygen saturation is 96%, and temperature 98.2. HEENT: PERRLA. EOMI. NECK: Supple. Jugular venous pressure is not visualized, probably normal. Normal carotid upstroke. LUNGS: Few crackles. The rest is diminished. HEART: Distant with slightly accented A2. ABDOMEN: Obese and soft. No masses palpable. EXTREMITIES: Lower extremities, no edema. LABORATORY AND DIAGNOSTIC DATA: EKG showed decreased voltage. Chest x-ray, which was done on admission is unremarkable. His laboratory data revealed white count elevated to 12.7 initially, today is normal 10.2; hemoglobin 13.9, stable; and platelets are stable. His chemistry is unremarkable including normal troponin. His INR also is unremarkable. IMPRESSION AND RECOMMENDATION: The patient has pleuritic-type of chest pain. I doubt that it is cardiac. However, because of the risk factors, he should undergo noninvasive ischemia assessment, which is going to be ordered. Thank you for your consultation. Kaycee King M.D. DR: SIENNA JOB#: [id number] CC:
[2019-06-20 04:00] VITALS: BP 132/75
--- NOTE | 2019-06-20 07:10 | NUR ---
NURSE NOTES: Received report from MARISELA Tom. Patient is alert and orientated x 4. Patient is on campus monitor. Patient is on room air breathing even and unlabored. Patient is in semi-quintanilla position and lying in bed. Bed is in lowest position, call light within reach, side rails x2 are up. Will continue plan of care.
[2019-06-20 07:51] VITALS: BP 121/71
--- NOTE | 2019-06-20 07:51 | NUR ---
HAND-OFF: Report given to MARISELA Robles.
[2019-06-20] MEDS ORDERED: Lexiscan 0.4mg/5ml syringe IV PRN (08:15)
[2019-06-20] MEDS: Aspirin Baby 81mg ORAL SCH (08:16)
[2019-06-20] MEDS: Lisinopril 10mg tab ORAL SCH (08:17)
[2019-06-20] MEDS: Tamsulosin 0.4mg cap ORAL SCH (08:20)
[2019-06-20] MEDS: Heparin 5000 units/ml inj SUBQ SCH (08:20)
--- NOTE | 2019-06-20 08:43 | Pulmonology Progress Note ---
Assessment/Plan Assessment/Plan ASSESSMENT Chest pain possibly pleuritic chest pain Hypertension Hyperlipidemia Morbid obesity SYLVIA Gout PLAN OF CARE Telemetry Serial troponin negative , tele no acute ischemic changes, clinically improving Echo with EF 65% aspirin fup with cardio recs pain management O2, HHN prn pulse ox now stable on RA Venous duplex BLE - negative DVT prophylaxis CXR negative BP management with STARLA Lipid panel stable at home on CPAP, BiPAP at HS and prn dc plan case discussed and evaluated by supervising physician Subjective Allergies: Coded Allergies: CIGARETTE SMOKE (Verified Allergy, Intermediate, Shortness of Breath, 07/27) Dust (Verified Allergy, Intermediate, Shortness of Breath, 06/18/19) Subjective leukocytosis resolved,afebrile pulse ox stable on RA serial troponin negative denies chest pain, less leg edema, less SOB Objective Last 24 Hour Vital Signs Date Time Temp Pulse Resp B/P (MAP) Pulse Ox O2 Delivery O2 Flow Rate FiO2 06/20/19 08:17 121/71 06/20/19 07:51 98.4 76 20 121/71 (88) 95 06/20/19 04:00 97.2 74 20 132/75 (94) 97 06/20/19 04:00 72 06/19/19 23:57 98.0 68 21 132/71 (91) 95 06/19/19 21:00 Room Air 06/19/19 20:00 97.7 70 21 138/83 (101) 96 06/19/19 20:00 87 06/19/19 19:56 72 18 95 Nasal Cannula 2.0 28 06/19/19 19:56 95 Nasal Cannula 2.0 28 06/19/19 16:00 98.2 70 22 140/68 (92) 96 06/19/19 15:48 98 06/19/19 12:00 98.0 66 21 133/72 (92) 95 06/19/19 11:49 65 06/19/19 09:00 Room Air 06/19/19 08:56 129/73 Intake and Output 06/19/19 06/20/19 19:00 07:00 # Voids 4 5 # Bowel Movements 1 Objective General Appearance: no acute distress, other - A/A/O x 4 morbidly obese male HEENT: normocephalic, atraumatic, anicteric, mucous membranes moist, PERRL Respiratory/Chest: chest wall non-tender, no respiratory distress, no accessory muscle use, few crackles at bases Cardiovascular: normal rate, regular rhythm - SR on tele Abdomen: soft, non tender - obese Neurologic/Psychiatric: no motor/sensory deficits, alert, oriented x 3, responsive Musculoskeletal: normal muscle bulk Laboratory Tests 06/19/19 21:30: Troponin I 0.000 Current Medications Medications (Trade) Dose Ordered Sig/Teresa Route PRN Reason Start Time Stop Time Status Last Admin Dose Admin Acetaminophen (Tylenol) 650 mg Q4H PRN ORAL FEVER 06/17/19 22:00 07/17/19 21:59 Albuterol/ Ipratropium (Albuterol/ Ipratropium) 3 ml EVERY 4 HOURS PRN HHN Shortness of Breath 06/17/19 22:00 06/22/19 21:59 Aspirin (ASA) 162 mg DAILY ORAL 06/18/19 09:00 07/18/19 08:59 06/20/19 08:16 Diltiazem HCl (Cardizem) 10 mg EVERY HOUR PRN IV heart rate more than 120, 06/17/19 22:00 07/17/19 21:59 Enalaprilat (Vasotec) 2.5 mg EVERY 6 HOURS PRN IV sbp more than 160 06/17/19 22:00 07/17/19 21:59 Gabapentin (Neurontin) 600 mg TWICE A DAY ORAL 06/19/19 10:45 07/19/19 10:44 06/20/19 08:17 Heparin Sodium (Porcine) (Heparin 5000 units/ml) 5,000 units EVERY 12 HOURS SUBQ 06/18/19 09:00 07/18/19 08:59 06/20/19 08:20 Lisinopril (Zestril) 10 mg DAILY ORAL 06/19/19 09:00 07/19/19 08:59 06/20/19 08:17 Morphine Sulfate (Morphine Sulfate) 2 mg EVERY 4 HOURS PRN IVP severe Pain (Pain Scale 7-10) 06/17/19 22:00 06/24/19 21:59 06/19/19 22:47 Nitroglycerin (Ntg) 0.4 mg NEEDED PRN SL Prn Chest Pain 06/17/19 22:00 07/17/19 21:59 Ondansetron HCl (Zofran) 4 mg Q6H PRN IVP Nausea & Vomiting 06/17/19 22:00 07/17/19 21:59 Polyethylene Glycol (Miralax) 17 gm DAILYPRN PRN ORAL Constipation 06/17/19 22:00 07/17/19 21:59 06/18/19 21:45 Regadenoson (Lexiscan) 0.4 mg ONCE PRN IV stress test 06/20/19 08:15 06/22/19 08:14 Tamsulosin HCl (Flomax) 0.4 mg DAILY ORAL 06/19/19 09:00 07/19/19 08:59 Temazepam (Restoril) 15 mg HSPRN PRN ORAL Insomnia 06/17/19 22:00 06/24/19 21:59 Janette Joe NP Jun 20, 2019 08:43
[2019-06-20] MEDS ORDERED: Albuterol/Ipratropium 3ml neb HHN PRN (08:45)
[2019-06-20 10:39] LABS: BASOPHILS % (AUTO) 0.5 % (0.0-2.0); EOSINOPHILS % (AUTO) 6.6 % (0.0-3.0); HEMATOCRIT 44.6 % (42.0-52.0); HEMOGLOBIN 14.5 G/DL (14.2-18.0); LYMPHOCYTES % (AUTO) 24.7 % (20.0-45.0); MEAN CORPUSCULAR VOLUME 93 FL (80-99); NEUTROPHILS % (AUTO) 62.2 % (45.0-75.0); PLATELET COUNT 267 K/UL (150-450); RED BLOOD COUNT 4.79 M/UL (4.70-6.10); RED CELL DISTRIBUTION WIDTH 11.9 % (11.6-14.8); WHITE BLOOD COUNT 9.4 K/UL (4.8-10.8)
[2019-06-20 11:22] LABS: ANION GAP 10 mmol/L (5-15); BLOOD UREA NITROGEN 10 mg/dL (7-18); CALCIUM 9.2 MG/DL (8.5-10.1); CARBON DIOXIDE 29 MMOL/L (21-32); CHLORIDE 102 MMOL/L (98-107); CREATININE 0.9 MG/DL (0.55-1.30); POTASSIUM 3.9 MMOL/L (3.5-5.1); SODIUM 140 MMOL/L (136-145)
--- NOTE | 2019-06-20 11:58 | Cardiology Report ---
APPROVED REPORT EXAM: Two-dimensional and M-mode echocardiogram with Doppler and color Doppler. INDICATION Left ventricular function M-Mode DIMENSIONS IVSd1.3 (0.7-1.1cm)Left Atrium (MM)4.2 (1.6-4.0cm) LVDd5.2 (3.5-5.6cm)Aortic Root3.3 (2.0-3.7cm) PWd0.9 (0.7-1.1cm)Aortic Cusp Exc.2.0 (1.5-2.0cm) LVDs3.2 (2.5-4.0cm) PWs1.8 cm Technically difficult study due to patient body habitus. Study quality precludes accurate assessment of regional wall motion. Normal left ventricular chamber size, systolic function and wall motion. Left ventricular ejection fraction estimated to be 65 %. Mild left ventricular hypertrophy. No evidence of pericardial effusion. Mild bi-atrial enlargement. Right ventricular chamber sizes is within normal limits. Focal aortic valve sclerosis with adequate cusp excursion. Thickened mitral valve leaflets with normal excursion. Mild mitral annulus and aortic root calcification. Pulmonic valve not well visualized. Normal tricuspid valve structure. IVC is normal in size with physiological collapse. A color flow and spectral Doppler study was performed and revealed: No aortic regurgitation. Trace mitral regurgitation. Mitral diastolic velocities suggest mild left ventricular diastolic dysfunction (Grade I). Trace tricuspid regurgitation. Tricuspid systolic velocities suggests peak right ventricular systolic pressure of 21 mmHg. No pulmonic regurgitation present.
[2019-06-20 12:00] VITALS: BP 148/83
--- NOTE | 2019-06-20 12:43 | NUR ---
NURSE NOTES: Spoke to Dr. King. Relay message from [place] bicycle repair technician about patient does not qualify for lexiscan and dobutatmine stress test. Lexiscan stress test requires patient to be under 300 lbs. Dobutamine stress test requires clearer pictures from echo. Dr. Paul was made aware and will see patient today. No new orders at this time.
--- NOTE | 2019-06-20 14:28 | Internal Med Progress Note ---
Subjective Date of Service: Jun 20, 2019 Physician Name Dion Nelson Attending Physician Michael Perez MD Current Medications Medications (Trade) Dose Ordered Sig/Teresa Route PRN Reason Start Time Stop Time Status Last Admin Dose Admin Acetaminophen (Tylenol) 650 mg Q4H PRN ORAL FEVER 06/17/19 22:00 07/17/19 21:59 Albuterol/ Ipratropium (Albuterol/ Ipratropium) 3 ml Q4H PRN HHN Shortness of Breath 06/20/19 08:45 06/25/19 08:44 Aspirin (ASA) 162 mg DAILY ORAL 06/18/19 09:00 07/18/19 08:59 06/20/19 08:16 Diltiazem HCl (Cardizem) 10 mg EVERY HOUR PRN IV heart rate more than 120, 06/17/19 22:00 07/17/19 21:59 Enalaprilat (Vasotec) 2.5 mg EVERY 6 HOURS PRN IV sbp more than 160 06/17/19 22:00 07/17/19 21:59 Gabapentin (Neurontin) 600 mg TWICE A DAY ORAL 06/19/19 10:45 07/19/19 10:44 06/20/19 08:17 Heparin Sodium (Porcine) (Heparin 5000 units/ml) 5,000 units EVERY 12 HOURS SUBQ 06/18/19 09:00 07/18/19 08:59 06/20/19 08:20 Lisinopril (Zestril) 10 mg DAILY ORAL 06/19/19 09:00 07/19/19 08:59 06/20/19 08:17 Morphine Sulfate (Morphine Sulfate) 2 mg EVERY 4 HOURS PRN IVP severe Pain (Pain Scale 7-10) 06/17/19 22:00 06/24/19 21:59 06/19/19 22:47 Nitroglycerin (Ntg) 0.4 mg NEEDED PRN SL Prn Chest Pain 06/17/19 22:00 07/17/19 21:59 Ondansetron HCl (Zofran) 4 mg Q6H PRN IVP Nausea & Vomiting 06/17/19 22:00 07/17/19 21:59 Polyethylene Glycol (Miralax) 17 gm DAILYPRN PRN ORAL Constipation 06/17/19 22:00 07/17/19 21:59 06/18/19 21:45 Regadenoson (Lexiscan) 0.4 mg ONCE PRN IV stress test 06/20/19 08:15 06/22/19 08:14 Tamsulosin HCl (Flomax) 0.4 mg DAILY ORAL 06/19/19 09:00 07/19/19 08:59 Temazepam (Restoril) 15 mg HSPRN PRN ORAL Insomnia 06/17/19 22:00 06/24/19 21:59 Allergies: Coded Allergies: CIGARETTE SMOKE (Verified Allergy, Intermediate, Shortness of Breath, 07/27) Dust (Verified Allergy, Intermediate, Shortness of Breath, 06/18/19) ROS Limited/Unobtainable: No Constitutional: Reports: no symptoms HEENT: Reports: no symptoms Cardiovascular: Reports: no symptoms Respiratory: Reports: no symptoms Gastrointestinal/Abdominal: Reports: no symptoms Genitourinary: Reports: no symptoms Neurologic/Psychiatric: Reports: no symptoms Subjective 53 YO M admitted with chest pain and shortness of breath. Cover for Int Ruben-Dr Perez Objective Last Vital Signs Date Time Temp Pulse Resp B/P (MAP) Pulse Ox O2 Delivery O2 Flow Rate FiO2 06/20/19 12:00 97.3 87 20 148/83 (104) 92 06/20/19 09:00 Room Air 06/20/19 08:20 21 06/19/19 19:56 2.0 Laboratory Tests Test 06/19/19 21:30 06/20/19 08:10 Troponin I 0.000 ng/mL (0.000-0.056) White Blood Count 9.4 K/UL (4.8-10.8) Red Blood Count 4.79 M/UL (4.70-6.10) Hemoglobin 14.5 G/DL (14.2-18.0) Hematocrit 44.6 % (42.0-52.0) Mean Corpuscular Volume 93 FL (80-99) Mean Corpuscular Hemoglobin 30.3 PG (27.0-31.0) Mean Corpuscular Hemoglobin Concent 32.5 G/DL (32.0-36.0) Red Cell Distribution Width 11.9 % (11.6-14.8) Platelet Count 267 K/UL (150-450) Mean Platelet Volume 7.2 FL (6.5-10.1) Neutrophils (%) (Auto) 62.2 % (45.0-75.0) Lymphocytes (%) (Auto) 24.7 % (20.0-45.0) Monocytes (%) (Auto) 6.0 % (1.0-10.0) Eosinophils (%) (Auto) 6.6 % (0.0-3.0) H Basophils (%) (Auto) 0.5 % (0.0-2.0) Sodium Level 140 MMOL/L (136-145) Potassium Level 3.9 MMOL/L (3.5-5.1) Chloride Level 102 MMOL/L (98-107) Carbon Dioxide Level 29 MMOL/L (21-32) Anion Gap 10 mmol/L (5-15) Blood Urea Nitrogen 10 mg/dL (7-18) Creatinine 0.9 MG/DL (0.55-1.30) Estimat Glomerular Filtration Rate > 60 mL/min (>60) Glucose Level 143 MG/DL (74-106) H Calcium Level 9.2 MG/DL (8.5-10.1) Intake and Output 06/19/19 06/20/19 19:00 07:00 # Voids 4 5 # Bowel Movements 1 Objective PHYSICAL EXAMINATION: GENERAL: The patient is awake, responsive, in no acute distress. HEAD AND NECK: Pupils are equal and reactive to light. Extraocular movements intact. Neck was supple. No JVD. LUNGS: Good air entry with no wheeze or rales. HEART: S1, S2. Distant heart sounds. No murmur or gallops. ABDOMEN: Soft, nondistended, and nontender. Morbidly obese. EXTREMITIES: No cyanosis or clubbing. +2 edema bilateral lower extremities NEUROLOGIC: Cranial nerves II through XII grossly normal. Moves all four extremities. Gait is not assessed due to the patient's status. RECTAL/GENITOURINARY: Refused and deferred. PSYCHIATRIC: Mood and affect is intact. Assessment/Plan Assessment/Plan ASSESSMENT: 1. Chest pain, possible acute coronary syndrome. 2. Fluid overload with acute CHF exacerbation. 3. Morbid obesity. 4. Hypertension. 5. Dyslipidemia. 6. Pleuritic chest pain with abnormal EKG. PLAN: 1. serial cardiac enzymes=negative. 2. Dr. Bender,=Pulmonary Critical Care and 3. Dr. El = Cardiology. Dion Nelson MD Jun 20, 2019 14:28
[2019-06-20] MEDS ORDERED: ASPIRIN81 MG ORAL (15:25)
[2019-06-20 15:49] VITALS: BP 131/62
--- NOTE | 2019-06-20 16:15 | NUR ---
NURSE NOTES: Dr. King cleared patient per cardiology.
--- NOTE | 2019-06-20 17:45 | NUR ---
Home Discharge: Patient is being discharged from medical care. Awake, alert and oriented x 4. Patient signed discharge paper, prescription copy, and belonging checklist. All medical devices such as IV, heart monitor, and ID band were removed. Patient left on wheelchair to taxi with taxi voucher with all personal belongings with steady gait to his home.
--- NOTE | 2019-06-20 20:15 | Cardiology Progress Note ---
Assessment/Plan Assessment/Plan the patient cannot have stress nuclear due to equipment limitations for weight. He is stable based on his clinical status, normal troponin and ECG. Will be going home and arrangement for outpatient stress test done. D/W admitting MD Subjective Subjective the patient is stable, no chest pain, has back pain Objective Last 24 Hour Vital Signs Date Time Temp Pulse Resp B/P (MAP) Pulse Ox O2 Delivery O2 Flow Rate FiO2 06/20/19 15:49 98.2 73 20 131/62 (85) 92 06/20/19 12:00 97.3 87 20 148/83 (104) 92 06/20/19 11:45 71 06/20/19 09:00 Room Air 06/20/19 08:20 95 Room Air 21 06/20/19 08:20 76 18 95 Room Air 21 06/20/19 08:17 121/71 06/20/19 08:02 77 06/20/19 07:51 98.4 76 20 121/71 (88) 95 06/20/19 04:00 97.2 74 20 132/75 (94) 97 06/20/19 04:00 72 06/19/19 23:57 98.0 68 21 132/71 (91) 95 06/19/19 21:00 Room Air General Appearance: no apparent distress, other - morbily obese, EENT: PERRL/EOMI Neck: normal alignment Rhythm: NSR Cardiovascular: normal rate Respiratory/Chest: normal breath sounds Abdomen: non tender Extremities: trace edema Intake and Output 06/19/19 06/20/19 18:59 06:59 # Voids 4 2 # Bowel Movements 1 Laboratory Tests Test 06/19/19 21:30 06/20/19 08:10 Troponin I 0.000 ng/mL (0.000-0.056) White Blood Count 9.4 K/UL (4.8-10.8) Red Blood Count 4.79 M/UL (4.70-6.10) Hemoglobin 14.5 G/DL (14.2-18.0) Hematocrit 44.6 % (42.0-52.0) Mean Corpuscular Volume 93 FL (80-99) Mean Corpuscular Hemoglobin 30.3 PG (27.0-31.0) Mean Corpuscular Hemoglobin Concent 32.5 G/DL (32.0-36.0) Red Cell Distribution Width 11.9 % (11.6-14.8) Platelet Count 267 K/UL (150-450) Mean Platelet Volume 7.2 FL (6.5-10.1) Neutrophils (%) (Auto) 62.2 % (45.0-75.0) Lymphocytes (%) (Auto) 24.7 % (20.0-45.0) Monocytes (%) (Auto) 6.0 % (1.0-10.0) Eosinophils (%) (Auto) 6.6 % (0.0-3.0) H Basophils (%) (Auto) 0.5 % (0.0-2.0) Sodium Level 140 MMOL/L (136-145) Potassium Level 3.9 MMOL/L (3.5-5.1) Chloride Level 102 MMOL/L (98-107) Carbon Dioxide Level 29 MMOL/L (21-32) Anion Gap 10 mmol/L (5-15) Blood Urea Nitrogen 10 mg/dL (7-18) Creatinine 0.9 MG/DL (0.55-1.30) Estimat Glomerular Filtration Rate > 60 mL/min (>60) Glucose Level 143 MG/DL (74-106) H Calcium Level 9.2 MG/DL (8.5-10.1) Kaycee King MD Jun 20, 2019 20:15
--- NOTE | 2019-06-21 12:34 | Discharge Summary ---
Discharge Summary Discharge Summary _ DATE OF ADMISSION: 06/17/2019 DATE OF DISCHARGE: 06/20/2019 DISCHARGED BY: Dr. Perez REASON FOR ADMISSION: 53 years old morbidly obese male with history of hypertension, hyperlipidemia , gout, obstructive sleep apnea , presented to emergency department with left- sided chest pressure. Pain reported moderate and constant. Patient reported some shortness of breath, no diaphoresis. Pain appeared to be pleuritic and worsened with deep inspiration. Patient reported family history of cardiac disease in mother age 65 with a possible NM. Patient received aspirin and nitro en route to the hospital. Upon evaluation blood pressure was elevated 154/84 , patient was mildly tachycardic 104 , pulse oximetry was stable on room air. Laboratory work-up revealed mild leukocytosis WBC 12.7, stable hemoglobin and hematocrit. Electrolytes were within normal range. Renal parameters were stable. Glucose 131. Troponin negative. pro BNP 6. EKG revealed sinus rhythm , no acute ischemic changes. Chest x-ray revealed no acute cardiopulmonary pathology. Chest pain resolved with a low dose of morphine Patient subsequently admitted to telemetry floor for further management. CONSULTANTS: liquor department manager Dr. El hospitalist Dr. Bender [facility] COURSE: Patient admitted to telemetry floor. Serial troponin were negative. Telemetry revealed no acute ischemic changes. Patient was ruled out for acute myocardial infarction. Echocardiogram revealed preserved ejection fraction of 65%. No evidence of wall motion abnormality. Mild left ventricular hypertrophy. No evidence of pericardial effusion. Right ventricular systolic pressure of 21. Patient started on aspirin as per liquor department manager recommendation. Supplemental oxygen was on board as needed to keep pulse oximetry above 92%. Pulmonary toilet with bronchodilator provided. Pulse oximetry was stable on room air. Venous duplex bilateral lower extremity revealed no evidence of acute DVT. DVT prophylaxis provided. Blood pressure was managed with STARLA inhibitor and remained stable. Lipid panel was stable. At home patient was using CPAP machine nightly for obstructive sleep apnea. BiPAP was provided at night and as needed. Patient clinically stabilized . Chest pain and shortness of breath resolved. [employer] recommended nuclear stress test due to family history of cardiac disease and multiple risk factors. However , nuclear stress test unable to be done in this facility due to equipment limitation to accommodate for patient weight. Per liquor department manager, patient was stable for discharge . [employer] recommended discharge home and arrange for outpatient stress test. Patient was discharged home. Outpatient follow up wht primary care provider and follow up with nuclears stress test. FINAL DIAGNOSES: Probably pleuritic chest pain Morbid obesity Hypertension Dyslipidemia Obstructive sleep apnea Gout DISCHARGE MEDICATIONS: See Medication Reconciliation list. DISCHARGE INSTRUCTIONS: Patient was discharged home . Follow up with primary care provider in one week. Janette Joe NP Jun 21, 2019 12:34
== END 2019-06-20 17:42 | disposition home or self-care (01) | DRG 204 ==
LOC: EDBD 18:14 → EMR 19:33 → 2E 19:39 → EDBEDREQ 20:09
DX: R07.81 Pleurodynia (principal); E66.01 Morbid (severe) obesity due to excess calories; I25.10 Atherosclerotic heart disease of native coronary artery without angina pectoris; I50.9 Heart failure, unspecified; G47.33 Obstructive sleep apnea (adult) (pediatric); I11.0 Hypertensive heart disease with heart failure; E78.5 Hyperlipidemia, unspecified; M10.9 Gout, unspecified; R94.31 Abnormal electrocardiogram [ECG] [EKG]; N40.0 Benign prostatic hyperplasia without lower urinary tract symptoms
CPT/HCPCS: 36415; 71045; 80048; 80053; 80061; 80307; 83690; 83735; 83880; 84100; 84443; 84484; 85025; 85610; 85651; 85730; 86140; 93005; 93306; 93970; 94664; 99285; J2785